=== PATIENT | male | born 1970 | race Caucasian/White ===

== ENCOUNTER 2020-11-22 11:23 | Day surgery (SDC) | payer BC ==
[~2020-11-22] VITALS: Ht 177.8 cm; Wt 104.5 kg
--- NOTE | 2020-11-22 13:05 | NUR ---
11/22/20 1305 Halie Horner 1300 PATIENT ARRIVE TO PACU AWAKE. REPOSITIONS SELF TO BACK. HOB ELEVATED. PATIENT SITTING UP DRINKING JUICE.
--- NOTE | 2020-11-23 20:06 | OR ---
[facility] [address], [place] [address] Signed DATE OF OPERATION: 11/22/2020 SURGEON: Hector Thorpe MD PREOPERATIVE DIAGNOSES: 1. Family history of colon cancer. 2. Difficulty with perianal hygiene, perianal swelling. POSTOPERATIVE DIAGNOSES: 1. Polyps x2. 2. Hypertrophied anal papilla. 3. Low-grade hemorrhoidal disease. INDICATION: This 50-year-old white man is a patient Dr. Kelechi Choudhury in [place] and the patient lives in the [place], [place]. He has had complaints of perianal swelling and difficulty with perianal hygiene from time to time, which he attributed to "hemorrhoids." Occasionally, he has had abdominal pain and rectal bleeding. Greater than eight weeks ago, he had rectal bleeding and pain upon defecation. He is admitted at this time to undergo colonoscopy. Notably, he has family history of colon cancer in a maternal grandmother. He understands the risks of bleeding, infection, perforation related to colonoscopy and wished to proceed. FINDINGS: The prep was excellent. Complete colonoscopy was undertaken to the cecum. There was an adenomatous appearing polyp of the cecum, which although challenging to excise was completely extirpated with cold morcellation polyp technique. Another small polyp of the rectum probably hyperplastic was excised easily. There was hypertrophied anal papilla and a few internal hemorrhoids, but no other findings of concern. DESCRIPTION OF PROCEDURE: The patient was brought to the endoscopy suite and placed in lateral decubitus position and given intravenous sedation to the point of slurred speech and nystagmus. Digital rectal examination was normal. An Olympus video colonoscope was passed in the rectum and manipulated throughout the colon ultimately intubating the cecum itself. The ileocecal valve and appendiceal orifice were normal. There was a small polyp situated in a difficult area on a cecal fold which was ultimately well positioned and multiple morcellation excisions of the lesion undertaken. It was passed for pathology as a cecal polyp. The scope was Electronically Signed By: HECTOR THORPE MD 11/23/202005 PATIENT NAME: DESHAWN RICHMOND OPERATIVE REPORT DATE OF : 74 REPORT #: [id number] PHYSICIAN: HECTOR THORPE MD PCP: KELECHI CHOUDHURY MD REPORT IS CONFIDENTIAL AND NOT TO BE RELEASED WITHOUT AUTHORIZATION [facility] [address], [place] [address] Signed withdrawn from that point and examination throughout showed no sign of abnormality until the rectum where a small probably hyperplastic polyp was noted. This was excised with cold morcellation technique. Retroflexed view was undertaken showing some hypertrophied anal papilla. Additionally, there was some evidence of low-grade internal hemorrhoidal change. The scope was straightened, withdrawn and removed and the patient was taken to the recovery room in good condition. CONCLUSION DIAGNOSIS: Polyps x2. PLAN: Recommend repeat colonoscopy in 3 to 5 years, sooner if clinically indicated. I would recommend initiation of fiber supplement, Citrucel or Metamucil which may help with his perianal swelling issue. MD ALAN Restrepo/LILLIAML /[id number] cc: Kelechi Choudhury MD Copies: KELECHI CHOUDHURY DMD ~ Electronically Signed By: HECTOR THORPE MD 11/23/202005 PATIENT NAME: DESHAWN RICHMOND OPERATIVE REPORT DATE OF : 74 REPORT #: [id number] PHYSICIAN: HECTOR THORPE MD PCP: KELECHI CHOUDHURY MD REPORT IS CONFIDENTIAL AND NOT TO BE RELEASED WITHOUT AUTHORIZATION
--- NOTE | 2020-11-27 08:25 | PATH ---
[facility] [address] [place], [place] [address] Signed SPECIMEN(S): A CECAL POLYP SPECIMEN(S): B RECTOSIGMOID POLYP SPECIMEN SOURCE: A. CECAL POLYP B. RECTOSIGMOID POLYP CLINICAL HISTORY: Colonoscopy with poss. biopsies. Abdominal pain, rectal bleeding. Post: Polyps x 2, internal hemorrhoids. MICROSCOPIC DESCRIPTION: Histologic sections of all submitted blocks are examined by light microscopy. Regarding specimen B: The rectosigmoid polyp demonstrates benign colorectal mucosa with focal lamina propria expansion by hypocellular fibrous stroma. There is no discrete associated cellular proliferation or inflammation. Immunohistochemical stains (with appropriately staining controls) were performed. The lesion begins to disappear on levels. The stroma is positive for CD34 with patchy S100 positivity; LILLIANA is negative. Overall the findings are non-specific and could represent focal fibrosis. No dysplasia or malignancy is seen. These findings, together with the gross examination, support the pathologic diagnosis. FINAL PATHOLOGIC DIAGNOSIS: A. Colon, cecum, polyp, polypectomy: - Fragments of tubular adenoma. - Negative for high-grade dysplasia or malignancy. B. Colon, rectosigmoid, polyp, polypectomy: - Colonic mucosa with no significant histopathologic abnormality. - Negative for dysplasia or malignancy. - See Microscopic. COMMENT: As part of [facility] Quality Improvement Program, part B of this case was reviewed by another member of our pathology staff. NAL:cml:C2NR GROSS DESCRIPTION: Two specimens are received in two containers, labeled "DL." A. The specimen, labeled "DL, 1," and designated on the requisition "cecum polyp," is received in formalin and consists of multiple louie-pink soft tissue PATIENT NAME: DESHAWN RICHMOND PATHOLOGY DATE OF : 74 REPORT #: [id number] PHYSICIAN: WILNER JOHNSON PCP: KELECHI CHOUDHURY MD REPORT IS CONFIDENTIAL AND NOT TO BE RELEASED WITHOUT AUTHORIZATION [facility] [address] [place], [place] [address] Signed fragments that measure 0.9 x 0.6 x 0.3 cm in aggregate. The specimen is entirely submitted in cassette (A1). B. The specimen, labeled "DL, 2," and designated on the requisition "rectosigmoid polyp," is received in formalin and consists of one louie soft tissue polypoid fragment that measures 0.3 cm in greatest dimension. The specimen is entirely submitted in cassette (B1). AT (under the direct supervision of a pathologist) The Gross Description was prepared using a voice recognition system. The report was reviewed for accuracy; however, sound-alike word errors, addition and/or deletions may occur. If there is any question about this report, please contact Client Services. PERFORMING LABORATORY: The technical component was performed by [facility], [address] [place] [id number] (Referral Agent: Sherrie Anderson MD; CLIA# [id number]). [facility], [address] [place] [address] (CLIA# [id number]). Diagnostician: Keke Viveros MD Pathologist Electronically Signed 11/27/2020 Copies: ~ PATIENT NAME: DESHAWN RICHMOND PATHOLOGY DATE OF : 74 REPORT #: [id number] PHYSICIAN: WILNER PATHOLOGY PCP: KELECHI CHOUDHURY MD REPORT IS CONFIDENTIAL AND NOT TO BE RELEASED WITHOUT AUTHORIZATION
== END 2020-11-22 13:30 | disposition home or self-care (01) ==
LOC: OPS 11:23 → DS 11:30 → OPS 12:00 → DS 12:00 → OPS 13:30
PROVIDERS: ATTEND Surgery
PROC: 0DBP8ZX Excision of Rectum, Via Natural or Artificial Opening Endoscopic, Diagnostic (ICD-10-PCS; 2020-11-22)
PROC: 0DBH8ZX Excision of Cecum, Via Natural or Artificial Opening Endoscopic, Diagnostic (ICD-10-PCS; principal; 2020-11-22 12:00)
DX: K64.8 Other hemorrhoids (principal); D12.0 Benign neoplasm of cecum; Z88.0 Allergy status to penicillin; Z87.891 Personal history of nicotine dependence; Z80.0 Family history of malignant neoplasm of digestive organs
CPT/HCPCS: 99153; G0500; J2250; J3010; J7121

== ENCOUNTER 2025-02-27 13:44 | Day surgery (SDC) | payer BC ==
[~2025-02-27] VITALS: Ht 177.8 cm; Wt 100.0 kg
[~2025-02-27 13:44] MED LIST: IBLOOD GLUCOSE TEST STRIP 1 EA TEST VI PRN; LACTATED RINGER'S 1,000 ML IV SCH; LIDOCAINE HCL 1% 5 ML SDV INJ ONE; MIDAZOLAM HCL 5 MG/5 ML VIAL IV PRN; TADALAFIL5 M1 PO; fentaNYL citrate 100 MCG/2 ML VIAL IV PRN
[2025-02-27 14:07] VITALS: BP 127/77
[2025-02-27] MEDS ORDERED: MIDAZOLAM HCL 5 MG/5 ML VIAL ONE (15:11)
[2025-02-27] MEDS ORDERED: fentaNYL citrate 100 MCG/2 ML VIAL ONE (15:11)
--- NOTE | 2025-02-27 15:59 | NUR ---
02/27/25 1559 Nancie Boswell 1554 PT ARRIVED TO PACU ON 3L VIA NC, PT AWAKE AND TALKING TO RN. PT REORIENTED TO PACU AND DENIES CONCERNS. PT ENCOURAGED TO PASS GAS NEEDED.
[2025-02-27 16:16] VITALS: BP 129/99
--- NOTE | 2025-02-28 09:59 | OR ---
[facility] [address] [place], [place] [address] Signed DATE OF OPERATION: 02/27/2025 SURGEON: Hector Thorpe MD PREOPERATIVE DIAGNOSES: Family history of colon cancer (brother) and history of adenomatous polyps in 2020. POSTOPERATIVE DIAGNOSIS: Small polyp x1, left colon, otherwise normal. PROCEDURE PERFORMED: Total colonoscopy to cecum with cold morcellation polypectomy x1. ANESTHESIA: Intravenous sedation, fentanyl 150 mcg, Versed 6 mg. INDICATION: This 54-year-old white man is a patient of Dr. Kelechi Choudhury and underwent colonoscopy by me in 2020, where he was found to have 2 adenomatous polyps. He has family history of colon cancer in his brother with rectal cancer in a grandfather as well. He is currently free of symptoms. He has been admitted to undergo surveillance colonoscopy to understand the risk of bleeding, infection, and perforation. FINDINGS: The prep was excellent. Complete colonoscopy was undertaken of the cecum. There was a very small and subtle polyp of left colon, which was excised. The remaining colon was normal. DESCRIPTION OF PROCEDURE: The patient was brought to the endoscopy suite and placed in lateral decubitus position, given intravenous sedation to the point of slurred speech and nystagmus. Digital rectal examination was normal. An Olympus video colonoscope was passed in the rectum and manipulated throughout the colon ultimately intubating the cecum itself. The ileocecal valve and appendiceal orifice were normal. The scope was withdrawn and examination throughout showed no sign of abnormality until the proximal left colon where a small polyp was noted. This was excised with cold morcellation technique. The scope was withdrawn after retroflexed view showed no other abnormality. He was taken to the recovery room in good condition. Electronically Signed By: HECTOR THORPE MD 02/28/25 0959 PATIENT NAME: DESHAWN RICHMOND OPERATIVE REPORT DATE OF : 74 REPORT #: [id number] PHYSICIAN: HECTOR THORPE MD PCP: KELECHI CHOUDHURY MD REPORT IS CONFIDENTIAL AND NOT TO BE RELEASED WITHOUT AUTHORIZATION [facility] [address] [place], [place] [address] Signed CONCLUDING DIAGNOSIS: Polyp x1, excised. PLAN: Recommend repeat colonoscopy in 5 years based on family history and personal history of polyps, sooner if symptoms . He will return to the ongoing care of Dr. Kelechi Choudhury. Hector Thorpe MD JM/MODL /[id number] cc: Dr. Choudhury Copies: ~ Electronically Signed By: HECTOR THORPE MD 02/28/25 0959 PATIENT NAME: DESHAWN RICHMOND OPERATIVE REPORT DATE OF : 74 REPORT #: [id number] PHYSICIAN: HECTOR THORPE MD PCP: KELECHI CHOUDHURY MD REPORT IS CONFIDENTIAL AND NOT TO BE RELEASED WITHOUT AUTHORIZATION
--- NOTE | 2025-03-02 14:31 | PATH ---
[facility] [address] [facility] [place] [address] Signed SPECIMEN(S): A DESCENDING COLON POLYP SPECIMEN SOURCE: A. DESCENDING COLON POLYP CLINICAL HISTORY: History of polyps, family history of colon cancer, polyp X1 FINAL PATHOLOGIC DIAGNOSIS: Descending colon polyp: - Hyperplastic polyp (two fragments). JVR:clv MICROSCOPIC EXAMINATION: Histologic sections of all submitted blocks are examined by light microscopy. These findings, together with the gross examination, support the pathologic diagnosis. GROSS DESCRIPTION: The specimen, labeled and designated "[place]isa, descending colon polyp," is received in formalin and consists of four louie soft tissue fragments, ranging from 0.1-0.5 cm. Entirely submitted in (A1). VB (under the direct supervision of a pathologist) The Gross Description was prepared using a voice recognition system. The report was reviewed for accuracy; however, sound-alike word errors, addition and/or deletions may occur. If there is any question about this report, please contact Client Services. PERFORMING LABORATORY: Technical component was performed by [facility], [address] [place] [id number] (CLIA# [id number]). Professional interpretation was performed by [facility], [address] [place] [id number] (CLIA#: [id number]). Diagnostician: Nacho Haque MD Pathologist Electronically Signed 03/02/2025 Copies: PATIENT NAME: DESHAWN RICHMOND PATHOLOGY DATE OF : 74 REPORT #: [id number] PHYSICIAN: WILNER PATHOLOGY PCP: KELECHI CHOUDHURY MD REPORT IS CONFIDENTIAL AND NOT TO BE RELEASED WITHOUT AUTHORIZATION [address] [address] Signed ~ PATIENT NAME: DESHAWN RICHMOND PATHOLOGY DATE OF : 74 REPORT #: [id number] PHYSICIAN: WILNER PATHOLOGY PCP: KELECHI CHOUDHURY MD REPORT IS CONFIDENTIAL AND NOT TO BE RELEASED WITHOUT AUTHORIZATION
== END 2025-02-27 16:25 | disposition home or self-care (01) ==
LOC: DS 13:44
PROVIDERS: ATTEND Surgery
PROC: 0DBG8ZX Excision of Left Large Intestine, Via Natural or Artificial Opening Endoscopic, Diagnostic (ICD-10-PCS; principal; 2025-02-27 15:00)
DX: Z12.11 Encounter for screening for malignant neoplasm of colon (principal); K63.5 Polyp of colon; Z80.0 Family history of malignant neoplasm of digestive organs; Z79.899 Other long term (current) drug therapy; Z88.0 Allergy status to penicillin
CPT/HCPCS: 99153; G0500; J2250; J3010; J7121